=== PATIENT | female | born 1935 | race Caucasian/White ===

== ENCOUNTER 2024-02-15 20:30 | Inpatient (IN) | payer MEDICARE, OTHER ==
[2024-02-15] MEDS ORDERED: Sodium Chloride 0.9% 10 ML Syringe FLUSH PRN (22:37)
[2024-02-15] MEDS ORDERED: Acetaminophen 325 MG Tab PO PRN (22:37)
[2024-02-15] MEDS ORDERED: Ondansetron 4 MG Tab.DIS PO PRN (22:37)
[2024-02-15] MEDS ORDERED: Ondansetron 4 MG/2 ML SDV IV PRN (22:37)
[2024-02-15] MEDS ORDERED: Sennosides 8.6 MG Tab PO PRN (22:51)
[2024-02-15] MEDS ORDERED: Lactulose Soln 10 GM/15 ML 30 ML UD Cup PO PRN (23:08)
[2024-02-15] MEDS: Simvastatin 20 MG Tab PO SCH (23:36)
[2024-02-16] MEDS: Simvastatin 20 MG Tab PO SCH ×2 (00:38→19:45)
[2024-02-16] MEDS: Lidocaine 4% 1 each Patch TOP SCH (07:52)
[2024-02-16] MEDS: Mometasone Furoate Powder 220 MCG/Puff 14 Dose Inhaler INH SCH (07:52)
[2024-02-16] MEDS: Calcium Carbonate 500 MG Tab.Chew PO SCH (07:53)
[2024-02-16] MEDS: Gabapentin 300 MG Cap PO SCH (07:53)
[2024-02-16] MEDS: amLODIPine 2.5 MG Tab PO SCH (07:53)
[2024-02-16] MEDS: Polyethylene Glycol 3350 Powder 17 GM Packet PO SCH (07:53)
[2024-02-16] MEDS: Multivitamin Tab PO SCH (07:53)
[2024-02-16 07:55] LABS: BASOPHILS ABSOLUTE AUTO 0.03 10^3/uL (0.00-0.50); BASOPHILS PERCENT AUTO 0.5 % (0-1); EOSINOPHILS ABSOLUTE AUTO 0.19 10^3/uL (0.00-1.50); EOSINOPHILS PERCENT AUTO 3.2 % (0-6); HEMATOCRIT 37.7 % (37.0-47.0); HEMOGLOBIN 12.1 g/dL (12.0-16.0); IMMATURE GRAN ABSOLUTE AUTO 0.01 10^3/uL (0.00-0.49); IMMATURE GRAN PERCENT AUTO 0.2 % (0.0-4.9); LYMPHOCYTES ABSOLUTE AUTO 1.73 10^3/uL (0.60-5.00); LYMPHOCYTES PERCENT AUTO 29.2 % (24-44); MEAN CORPUSCULAR HEMOGLOBIN 31.3 pg (27.0-32.0); MEAN CORPUSCULAR HGB CONC 32.1 g/dL (32.0-36.0); MEAN CORPUSCULAR VOLUME 97.7 fL (83.0-97.0); MONOCYTES ABSOLUTE AUTO 0.77 10^3/uL (0.00-1.50); NEUTROPHILS ABSOLUTE AUTO 3.19 x10^3/uL (1.80-8.00); NEUTROPHILS PERCENT AUTO 53.9 % (41-71); PLATELET COUNT,PLT 180 10^3/uL (150-400); RED BLOOD CELL COUNT 3.86 x10^6/uL (4.00-5.50); WHITE BLOOD CELL COUNT,WBC 5.9 10^3/uL (4.0-11.0)
[2024-02-16] MEDS: Lactobacillus Rhamnosus GG (Probiotic) Cap PO SCH (07:55)
[2024-02-16] MEDS: Losartan 100 MG Tab PO SCH (07:55)
[2024-02-16] MEDS: Cholecalciferol (Vitamin D3) 25 MCG Tab PO SCH (07:55)
[2024-02-16] MEDS: Magnesium Oxide 400 MG Tab PO SCH (07:55)
[2024-02-16] MEDS: Furosemide 40 MG/4 ML VIAL IVPUSH SCH (07:56)
[2024-02-16 07:59] LABS: ALANINE AMINOTRANSFERASE,ALT 25 U/L (12-78); ALKALINE PHOSPHATASE 106 U/L (46-116); ASPARTATE AMNIOTRANSFERASE,AST 44 U/L (15-37); BILIRUBIN TOTAL 0.6 mg/dL (0.0-1.0); BLOOD UREA NITROGEN,BUN 16 mg/dL (7-18); CALCIUM 9.9 mg/dL (8.4-10.1); CARBON DIOXIDE,CO2 33 mmol/L (21-32); CHLORIDE,CL 95 mEq/L (98-106); CREATININE 0.9 mg/dL (0.6-1.0); EST CRCL DRUG DOSING (CG) 26.04 mL/min; GLUCOSE RANDOM 94 mg/dL (75-99); POTASSIUM,K 4.1 mEq/L (3.5-5.0); PRO B-TYPE NATRIUR PEPT,BNPPRO 318 pg/mL (0-1000); PROTEIN TOTAL,TP 7.4 g/dL (6.4-8.2); SODIUM,NA 135 mEq/L (136-145)
[2024-02-16 08:00] LABS: C-REACTIVE PROTEIN < 0.50 mg/dL (<=0.50); ESTIMATED GFR 61 mL/min (>=60)
[2024-02-16] MEDS ORDERED: Famotidine 20 MG Tab PO SCH (08:00)
[2024-02-16] MEDS: Famotidine 20 MG Tab PO SCH (11:54)
[2024-02-16] MEDS: Enoxaparin 30 MG/0.3 ML Syringe SUBCUT SCH (19:44)
[2024-02-16] MEDS: Isosorbide Mononitrate 30 MG Tab.ER PO SCH (19:45)
[2024-02-16] MEDS: Latanoprost 0.005% Ophth Soln 2.5 ML Bottle EYERT SCH (19:54)
[2024-02-17 07:20] LABS: BASOPHILS ABSOLUTE AUTO 0.03 10^3/uL (0.00-0.50); BASOPHILS PERCENT AUTO 0.5 % (0-1); EOSINOPHILS PERCENT AUTO 5.4 % (0-6); HEMOGLOBIN 10.8 g/dL (12.0-16.0); IMMATURE GRAN ABSOLUTE AUTO 0.01 10^3/uL (0.00-0.49); IMMATURE GRAN PERCENT AUTO 0.2 % (0.0-4.9); LYMPHOCYTES ABSOLUTE AUTO 1.76 10^3/uL (0.60-5.00); LYMPHOCYTES PERCENT AUTO 31.5 % (24-44); MEAN CORPUSCULAR HEMOGLOBIN 31.9 pg (27.0-32.0); MEAN CORPUSCULAR HGB CONC 32.7 g/dL (32.0-36.0); MEAN CORPUSCULAR VOLUME 97.3 fL (83.0-97.0); MONOCYTES ABSOLUTE AUTO 0.84 10^3/uL (0.00-1.50); NEUTROPHILS ABSOLUTE AUTO 2.65 x10^3/uL (1.80-8.00); NEUTROPHILS PERCENT AUTO 47.4 % (41-71); PLATELET COUNT,PLT 183 10^3/uL (150-400); RED BLOOD CELL COUNT 3.39 x10^6/uL (4.00-5.50); WHITE BLOOD CELL COUNT,WBC 5.6 10^3/uL (4.0-11.0)
[2024-02-17 07:32] LABS: ALANINE AMINOTRANSFERASE,ALT 28 U/L (12-78); ALBUMIN 3.4 g/dL (3.4-5.0); ALKALINE PHOSPHATASE 101 U/L (46-116); ASPARTATE AMNIOTRANSFERASE,AST 38 U/L (15-37); BILIRUBIN TOTAL 0.5 mg/dL (0.0-1.0); BLOOD UREA NITROGEN,BUN 19 mg/dL (7-18); CALCIUM 9.6 mg/dL (8.4-10.1); CARBON DIOXIDE,CO2 35 mmol/L (21-32); CHLORIDE,CL 95 mEq/L (98-106); EST CRCL DRUG DOSING (CG) 23.43 mL/min; GLUCOSE RANDOM 95 mg/dL (75-99); POTASSIUM,K 3.9 mEq/L (3.5-5.0); PROTEIN TOTAL,TP 6.5 g/dL (6.4-8.2); SODIUM,NA 134 mEq/L (136-145)
[2024-02-17] MEDS: Famotidine 20 MG Tab PO SCH (07:44)
[2024-02-17 07:59] LABS: C-REACTIVE PROTEIN < 0.50 mg/dL (<=0.50); ESTIMATED GFR 54 mL/min (>=60)
== END 2024-02-17 10:25 | disposition home or self-care (01) | DRG 948 ==
LOC: UNDOADMIN 20:30 → CC.MS 20:30
PROVIDERS: ADMIT Nurse Practitioner Family; ATTEND Nurse Practitioner Family
DX: R41.82 Altered mental status, unspecified (principal); E87.1 Hypo-osmolality and hyponatremia; Z66 Do not resuscitate; E78.5 Hyperlipidemia, unspecified; I12.9 Hypertensive chronic kidney disease with stage 1 through stage 4 chronic kidney disease, or unspecified chronic kidney disease; N18.9 Chronic kidney disease, unspecified; R41.0 Disorientation, unspecified; H54.7 Unspecified visual loss; H91.90 Unspecified hearing loss, unspecified ear; J45.909 Unspecified asthma, uncomplicated; K21.9 Gastro-esophageal reflux disease without esophagitis; M81.0 Age-related osteoporosis without current pathological fracture; I87.2 Venous insufficiency (chronic) (peripheral); M54.50 Low back pain, unspecified; G89.29 Other chronic pain; T42.6X5A Adverse effect of other antiepileptic and sedative-hypnotic drugs, initial encounter; Z87.81 Personal history of (healed) traumatic fracture; Z88.8 Allergy status to other drugs, medicaments and biological substances; Z79.899 Other long term (current) drug therapy; Z98.890 Other specified postprocedural states
CPT/HCPCS: 36415; 80053; 83880; 85025; 86140; 97161-GP; 99223; 99233; 99238; A6212; A9270-GY; J1650; J1940